=== PATIENT | female | born 1945 | race African-American/Black ===

== ENCOUNTER 2018-08-16 06:35 | Day surgery (SDC) | payer MEDICARE, MEDICAID ==
--- NOTE | 2018-08-11 14:41 | Pre-Procedure Note/Attestation ---
Pre-Procedure Note/Attestation Complete Prior to Procedure Planned Procedure: left Procedure Narrative: phaco with IOL Indications for Procedure Pre-Operative Diagnosis: cataract Attestation I attest that I discussed the nature of the procedure; its benefits; risks and complications; and alternatives (and the risks and benefits of such alternatives ), prior to the procedure, with the patient (or the patient's legal artist's representative). I attest that, if there was a reasonable possibility of needing a blood transfusion, the patient (or the patient's legal artist's representative) was given the [facility] standardized written summary, pursuant to the [place] Blood Safety Act ([place] Health and Safety Code # 1645, as amended). I attest that I re-evaluated the patient just prior to the surgery and that there has been no change in the patient's H&P, except as documented below: ARLEN CALERO Aug 11, 2018 14:41
--- NOTE | 2018-08-14 08:22 | Opthalmology H&P ---
Ophthalmology H&P H&P Chief Complaint: decreased vision in left eye HPI Vision Affects Ability to: read, focus/use eyes together, manage personal affairs HPI Narrative BLURRY VISION Exam Visual Acuity: OD; 20/100 OS; 20/125 Tension: OD; 17 OS; 17 Eye Exam: normal OU: external exam, palpebral fissure-width, marginal reflex distance, levator function, corneas, anterior chambers; findings: lens - OD; IOL OS; CORTICAL, fundus exam - INCREASED CD RATIO Assessment/Plan Diagnosis: (1) Cortical cataract of left eye Treatment Plan: cataract extraction w/ lens implant Goals of Treatment: improvement of vision Attestation Attestation The risks and benefits of the surgery as well as alternative procedures were explained to the patient in detail. ARLEN CALERO Aug 14, 2018 08:22
[2018-08-16] VITALS (10 sets, daily range): BP systolic 131–183; BP diastolic 41–89
[~2018-08-16] VITALS: Ht 157.5 cm; Wt 77.1 kg
[2018-08-16] MEDS ORDERED: Maxitrol Opth Oint 3.5gm ONE (07:00)
[2018-08-16] MEDS ORDERED: Proparacaine 0.5% Opth Soln 15ml LEFT EYE ONE (07:00)
[2018-08-16] MEDS ORDERED: Tetracaine 0.5% Opth 4ml Soln LEFT EYE ONE (07:00)
[2018-08-16] MEDS ORDERED: Pilocarpine 1% Opth 15ml Soln ONE (07:00)
[2018-08-16] MEDS ORDERED: Pred Forte 1% Opth Susp 1ml ONE (07:00)
[2018-08-16] MEDS ORDERED: Dexamethasone 4mg/ml vial ONE (07:00)
[2018-08-16] MEDS ORDERED: Akten 3.5% 1ml Btl LEFT EYE ONE (07:00)
[2018-08-16] MEDS: Phenylephrine 10% Opth Soln 5ml LEFT EYE SCH ×3 (09:58→10:22)
[2018-08-16] MEDS: Tobramycin Op Soln 0.3% 5ml LEFT EYE SCH ×3 (09:58→10:22)
[2018-08-16] MEDS: Tropicamide 1% Opth 15ml Soln LEFT EYE SCH ×3 (09:58→10:22)
[2018-08-16] MEDS: Cyclopentolate 1% Opth Sol 2ml LEFT EYE SCH ×3 (09:58→10:22)
[2018-08-16] MEDS ORDERED: ALLOPURINOL100 M1 ORAL (10:43)
[2018-08-16] MEDS ORDERED: GABAPENTIN300 MG ORAL (10:43)
[2018-08-16] MEDS ORDERED: OXYCODONE IR15 MG ORAL (10:43)
[2018-08-16] MEDS ORDERED: VITAMIN B122500 MCG PO (10:43)
[2018-08-16] MEDS ORDERED: VITAMIN B6 PO (10:43)
[2018-08-16] MEDS ORDERED: VITAMIN D35000 UNIT PO (10:43)
[2018-08-16] MEDS ORDERED: BENADRYL25 M3 PO (10:43)
[2018-08-16] MEDS ORDERED: LIDODERM700 M1 TOPIC (10:43)
[2018-08-16] MEDS ORDERED: SOMA350 MG PO (10:43)
[2018-08-16] MEDS ORDERED: BUSPIRONE HCL5 M2 ORAL (10:43)
[2018-08-16] MEDS ORDERED: WELCHOL625 MG ORAL (10:43)
[2018-08-16] MEDS ORDERED: LIVER COMPLEX1 EACH PO (10:43)
[2018-08-16] MEDS ORDERED: THIAMINE HCL100 MG ORAL (10:43)
[2018-08-16] MEDS ORDERED: THYROID PO (10:43)
[2018-08-16] MEDS ORDERED: EPINEPHrine 1mg/1ml Amp ONE (11:04)
[2018-08-16] MEDS ORDERED: Povidone-Iodine 5% opth solution ONE (11:04)
[2018-08-16] MEDS ORDERED: BSS 15ml BTL ONE (11:04)
[2018-08-16] MEDS ORDERED: Sodium Hyaluronate 14 mg/ml 0.85ml ONE (11:04)
[2018-08-16] MEDS ORDERED: BSS 500ml btl ONE (11:04)
[2018-08-16] MEDS ORDERED: Midazolam 2mg/2ml Inj ONE (11:06)
[2018-08-16] MEDS ORDERED: fentaNYL 100 mcg/2 mL IV ONE ×2 (11:06→12:11)
[2018-08-16] MEDS ORDERED: LR 1000ml ONE (11:30)
--- NOTE | 2018-08-16 11:43 | Anethesia Preoperative Eval ---
Anesthesia Pre-op PMH/ROS General Date of Evaluation: Aug 16, 2018 Time of Evaluation: 11:02 Anesthesiologist: Frank ASA Score: ASA 3 Mallampati Score Class I : Soft palate, uvula, fauces, pillars visible Class II: Soft palate, uvula, fauces visible Class III: Soft palate, base of uvula visible Class IV: Only hard plate visible Mallampati Classification: Class III Surgeon: Geri Diagnosis: L eye cataract Surgical Procedure: L eye cataract extraction Anesthesia History: none Family History: no anesthesia problems Allergies: Coded Allergies: PENICILLINS (Verified Allergy, Severe, 08/16/18) HIVES SULFA (SULFONAMIDE ANTIBIOTICS) (Verified Allergy, Severe, 08/16/18) FEVER, SHAKES CODEINE (Verified Adverse Reaction, Intermediate, 08/16/18) CONSTIPATION ASPIRIN (Verified Adverse Reaction, Mild, 08/16/18) BRUISE Medications: see eMAR Patient NPO?: Yes Past Medical History Cardiovascular: Reports: HTN; Denies: CAD, OR, valve dz, arrhythmia, other Pulmonary: Reports: HARVEY; Denies: asthma, COPD, other Gastrointestinal/Genitourinary: Reports: GERD; Denies: CRI, ESRD, other Neurologic/Psychiatric: Reports: other - chronic pain; Denies: dementia, CVA, depression/anxiety, TIA Endocrine: Reports: hypothyroidism; Denies: DM, steroids, other HEENT: Reports: cataract (L), cataract (R); Denies: glaucoma, [place] (L[place] (R), other Hematology/Immune: Denies: anemia, DVT, bleeding disorder, other Musculoskeletal/Integumentary: Reports: DJD; Denies: OA, RA, DDD, edema, other Other: obesity PMH Narrative: as above PSxH Narrative: see H&P Anesthesia Pre-op Phys. Exam Physician Exam Last Vital Signs Date Time Temp Pulse Resp B/P (MAP) Pulse Ox O2 Delivery O2 Flow Rate FiO2 08/16/18 10:05 Room Air 08/16/18 10:04 97.2 71 18 158/64 99 97.2 Constitutional: NAD Neurologic: CN 2-12 intact Cardiovascular: RRR, no M/R/G Respiratory: CTA Gastrointestinal: S/NT/ND Airway Exam Mallampati Score: Class II MO: limited ROM: limited Teeth: missing Dentures: upper, lower Anesthesia Pre-op A/P Risk Assessment & Plan Assessment: ASA 3 Plan: Rohit Rivera MD Aug 16, 2018 11:43
--- NOTE | 2018-08-16 11:54 | Immediate Post-Op Evaluation ---
Immediate Post-Op Evalulation Immediate Post-Op Evalulation Procedure: L eye cataract extraction with IOL Date of Evaluation: Aug 16, 2018 Time of Evaluation: 11:53 IV Fluids: 200 Blood Products: none Estimated Blood Loss: none Urinary Output: none Blood Pressure Systolic: 156 Blood Pressure Diastolic: 73 Pulse Rate: 68 Respiratory Rate: 20 O2 Sat by Pulse Oximetry: 99 Temperature (Fahrenheit): 97.6 Pain Score (1-10): 1 Nausea: No Vomiting: No Complications none Patient Status: reacts, patent, none Hydration Status: adequate Rohit Marie MD Aug 16, 2018 11:54
[2018-08-16] MEDS ORDERED: DiphenhydrAMINE 50mg/ml Inj IVP PRN (12:00)
[2018-08-16] MEDS ORDERED: fentaNYL 100 mcg/2 mL IV PRN (12:00)
--- NOTE | 2018-08-16 12:59 | 48 Hour Post Anesthesia Eval ---
Post Anesthesia Evaluation Procedure: L eye cataract extraction with IOL Date of Evaluation: Aug 16, 2018 Time of Evaluation: 12:58 Blood Pressure Systolic: 148 0: 74 Pulse Rate: 68 Respiratory Rate: 20 Temperature (Fahrenheit): 97.6 O2 Sat by Pulse Oximetry: 98 Airway: patent Nausea: No Vomiting: No Pain Intensity: 1 Hydration Status: adequate Cardiopulmonary Status: stable Mental Status/LOC: patient returned to baseline Follow-up Care/Observations: n/a Post-Anesthesia Complications: none Follow-up care needed: ready to discharge Rohit Marie MD Aug 16, 2018 12:59
--- NOTE | 2018-08-18 15:33 | Brief Operative Note ---
Immediate Post Operative Note Operative Note Chief Complaint: blurry vision, OS Pre-op Diagnosis: cataract, OS Procedure: phaco with IOL Post-op Diagnosis: Pseudophakia Post-op Diagnosis: same as pre-op Findings: consistent w/pre-op dx studies Surgeon: Geri Anesthesiologist: Frank Anesthesia: MAC Specimen: none Complications: none Fluids: LR Estimated Blood Loss: none Drains: none Implant(s) used?: Yes Frederick Nevarez MD Aug 18, 2018 15:33
--- NOTE | 2018-08-18 15:34 | Operative Note - PDOC ---
Operative Note Operative Note Date of Operation/Procedure: Aug 16, 2018 Chief Complaint: blurry vision, OS Pre-op Diagnosis: cataract, OS Procedure: phaco with IOL Post-op Diagnosis: Pseudophakia Post-op Diagnosis: same as pre-op Operative Findings: consistent w/pre-op dx studies Surgeon: Geri Anesthesiologist: Frank Anesthesia: MAC Specimen: none Complications: none Fluids: LR Estimated Blood Loss: none Drains: none Implant(s) used?: Yes Indications for Procedure cataract Description of Procedure This patient has been complaining visually significant cataract in the affected eye with the best corrected visual acuity under moderate glare conditions worse. The patient complains of difficulties with glare in performing activities of daily living and wants to manage personal affairs with comfort and accuracy and see well enough to move with safety at home and outdoors. The risks, benefits and alternatives of the procedure were discussed with the patient in the office prior to scheduling surgery. All questions from the patient were answered after the surgical procedure was explained in detail. The risks of the procedure as explained to the patient include, but are not limited to, pain, infection, bleeding, loss of vision, retinal detachment, need for further surgery, loss of lens nucleus, double vision, etc. Alternative procedures were discussed which include, to do nothing or seek a second opinion. Informed consent for this procedure was obtained from the patient. The patient was referred to a primary care physician for a cardiopulmonary clearance prior to surgery, after proper evaluation was done patient was properly scheduled for outpatient surgery. The patient was brought to the operating room where the anesthesiologist established I.V. lines and cardiac monitoring leads. Mild intravenous sedation was administered. The patient was then prepared with a 5% solution of povidone -iodine to the conjunctival fornix and lashes, and a 5% solution of povidone- iodine to the lids and periorbital skin. The patient was then draped in the usual sterile fashion. A lid speculum was then placed in the operative eye. A keratome blade was then used to create a biplanar incision into the anterior chamber. Viscoelastics was then instilled into the anterior chamber. A capsulorrhexis was then fashioned with an utrata forceps followed hydrodissection and hydro delineation the lens nucleus with G 27 cannula. Paracentesis incision was made at 3 o'clock with sharp blade. The phacoemulsification unit, after being properly adjusted and tested, was then used to emulsify the nucleus. Residual cortical material was aspirated with the irrigation and aspiration unit. Healon was then instilled into the anterior chamber. The corneal wound was then enlarged to the size of the optic with the dhruv keratome blade. The intraocular lens was then inspected for right power and size and thought to be satisfactory. Then the lens was gently placed in the capsular bag. Positioning within the capsular bag was confirmed by direct visualization. Optic centration was accomplished with a Sinskey hook. Viscoelastics was removed from the anterior chamber using the irrigation and aspiration unit. The corneal wound was then tested for leaks and none were found. The lid speculum were then removed. Sponge and needle counts were correct. An eye patch and shield were placed over the operative eye. The patient was taken to the recovery room in stable condition. There were no complications. The patient tolerated the procedure well. The patient was then transferred to the ambulatory surgery unit in stable and satisfactory condition , was given detailed written instructions and asked to follow up in the office the next day. Frederick Nevarez MD Aug 18, 2018 15:34
== END 2018-08-17 13:30 | disposition home or self-care (01) ==
LOC: SUR 06:35
DX: H25.012 Cortical age-related cataract, left eye (principal); I11.9 Hypertensive heart disease without heart failure; M79.7 Fibromyalgia; H40.9 Unspecified glaucoma; G47.00 Insomnia, unspecified; G47.33 Obstructive sleep apnea (adult) (pediatric); E66.9 Obesity, unspecified; M17.0 Bilateral primary osteoarthritis of knee; E78.00 Pure hypercholesterolemia, unspecified; K21.9 Gastro-esophageal reflux disease without esophagitis; G89.29 Other chronic pain; E03.9 Hypothyroidism, unspecified; Z87.891 Personal history of nicotine dependence; Z88.6 Allergy status to analgesic agent; Z88.5 Allergy status to narcotic agent; Z88.0 Allergy status to penicillin; Z88.2 Allergy status to sulfonamides; Z91.018 Allergy to other foods
CPT/HCPCS: 66984; J0171; J1100; J2250; J3010; J3370; V2632; 94003; 94150